=== PATIENT | female | born 1935 | race Two or more races ===

== ENCOUNTER 2016-10-02 06:42 | Day surgery (SDC) | payer MEDICARE, BC ==
--- NOTE | 2016-10-01 09:42 | Pre-Procedure Note/Attestation ---
Pre-Procedure Note/Attestation Complete Prior to Procedure Planned Procedure: right Procedure Narrative: Rt shoulder scope, SAD, mini gaurav, RTC repair Indications for Procedure Pre-Operative Diagnosis: Rt shoulder RTC tear Attestation I attest that I discussed the nature of the procedure; its benefits; risks and complications; and alternatives (and the risks and benefits of such alternatives ), prior to the procedure, with the patient (or the patient's legal corporate sales representative). I attest that, if there was a reasonable possibility of needing a blood transfusion, the patient (or the patient's legal corporate sales representative) was given the [facility] standardized written summary, pursuant to the Vini Tony Blood Safety Act ([place] Health and Safety Code # 1645, as amended). I attest that I re-evaluated the patient just prior to the surgery and that there has been no change in the patient's H&P, except as documented below: NONE PAULINA CAMACHO Oct 01, 2016 09:42
[2016-10-02] VITALS (17 sets, daily range): BP systolic 85–146; BP diastolic 48–89
[~2016-10-02] VITALS: Ht 149.9 cm; Wt 46.7 kg
[~2016-10-02 06:42] MED LIST: CITRACAL + D E1 EACH PO; MULTIVITAMINS1 EAC2 ORAL; PROZAC40 MG ORAL; SYNTHROID75 MCG ORAL; ZOLPIDEM TARTRAT5 MG ORAL; ceFAZolin 1gm in D5W 55ml IVP ONE; celeBREX 200mg Cap **SURGERY PATIENTS ONLY ORAL ONE; oxyCONTIN 20mg tab ORAL ONE
[2016-10-02] MEDS ORDERED: Ropivacaine 2mg/ml Amp INJ ONE (07:08)
[2016-10-02] MEDS ORDERED: Ropivacaine 5mg/ml Vial 20ml INJ ONE (07:26)
[2016-10-02] MEDS ORDERED: Bupivacaine w/Epi 0.5% 30ml Vial INJ ONE (07:26)
[2016-10-02] MEDS ORDERED: Clindamycin 0 ML ONE (07:32)
[2016-10-02] MEDS ORDERED: Propofol 10mg/ml 20ml IV ONE (08:30)
[2016-10-02] MEDS ORDERED: Glycopyrrolate 0.2mg/ml 1ml Vial ONE (08:30)
[2016-10-02] MEDS ORDERED: NS Irrig 2000ml IRRIG ONE (08:30)
[2016-10-02] MEDS ORDERED: NS Irrig 4000ml IRRIG ONE ×2 (08:30→09:06)
[2016-10-02] MEDS ORDERED: Midazolam 2mg/2ml Inj ONE (08:30)
[2016-10-02] MEDS ORDERED: Zemuron 50mg/5ml Inj IV ONE (08:30)
[2016-10-02] MEDS ORDERED: fentaNYL 100 mcg/2 mL IV ONE (08:30)
[2016-10-02] MEDS ORDERED: Neostigmine 1mg/ml 10ml Inj ONE (08:30)
[2016-10-02] MEDS ORDERED: LR 1000ml ONE (08:30)
[2016-10-02] MEDS ORDERED: LR 1000ml 1,000 ML IVLG SCH (09:40)
--- NOTE | 2016-10-02 09:40 | Anethesia Preoperative Eval ---
Anesthesia Pre-op PMH/ROS General Date of Evaluation: Oct 02, 2016 Time of Evaluation: 08:10 Anesthesiologist: Jammie ASA Score: ASA 2 Mallampati Score Class I : Soft palate, uvula, fauces, pillars visible Class II: Soft palate, uvula, fauces visible Class III: Soft palate, base of uvula visible Class IV: Only hard plate visible Mallampati Classification: Class II Surgeon: Lauren Diagnosis: R shoulder pain Surgical Procedure: R shoulder scope Anesthesia History: none Family History: no anesthesia problems Allergies: Coded Allergies: PENICILLINS (Verified Allergy, Mild, 10/01/16) skin rash Medications: see eMAR Past Medical History Cardiovascular: Denies: CAD, HTN, TN, arrhythmia, other, valve dz Pulmonary: Denies: COPD, ANNETTE, asthma, other Gastrointestinal/Genitourinary: Reports: GERD, Denies: CRI, ESRD, other Neurologic/Psychiatric: Denies: CVA, TIA, dementia, depression/anxiety, other Endocrine: Reports: hypothyroidism, Denies: DM, other, steroids HEENT: Denies: [place] (L), [place] (R), cataract (L), cataract (R), glaucoma, other Hematology/Immune: Reports: anemia - mild, Denies: DVT, bleeding disorder, other Musculoskeletal/Integumentary: Reports: DJD PMH Narrative: as above PSxH Narrative: L shoulder scope, small bowel resection Anesthesia Pre-op Phys. Exam Physician Exam Last Vital Signs Date Time Temp Pulse Resp B/P Pulse Ox O2 Delivery O2 Flow Rate FiO2 10/02/16 07:42 97.9 61 18 108/57 95 Room Air Constitutional: NAD Neurologic: CN 2-12 intact Cardiovascular: RRR, no M/R/G Respiratory: CTA Gastrointestinal: S/NT/ND Airway Exam Mallampati Score: Class II MO: limited Neck: stiff ROM: limited Teeth: missing Dentures: no lower, no upper Anesthesia Pre-op A/P Labs see chart Studies Pre-op Studies: EKG - NSR Risk Assessment & Plan Assessment: ASA 2 Plan: GA with ETT R brachial plexus block for p/op pain control Status Change Before Surgery: No Pre-Antibiotics Drug: Ancef 1gr. Given Within 1 Hr of Incision: Yes Time Given: 08:46 COOPER BLACK M.D. Oct 02, 2016 09:40
[2016-10-02] MEDS ORDERED: DiphenhydrAMINE 50mg/ml Inj IVP PRN (09:45)
[2016-10-02] MEDS ORDERED: Hydromorphone 0.5mg/0.5ml inj IVP PRN (09:45)
[2016-10-02] MEDS ORDERED: Ketorolac 30mg Inj IV PRN (09:45)
[2016-10-02] MEDS ORDERED: EPINEPHrine 1mg/1ml Amp ONE (10:02)
--- NOTE | 2016-10-02 10:40 | Brief Operative Note ---
Immediate Post Operative Note Operative Note Chief Complaint: rt shoulder pain Pre-op Diagnosis: Rt shoulder rtc tear Procedure: Rt shoulder scope, SAD, mini gaurav, Biceps tenotomy, subscap repair, RTC repair Post-op Diagnosis: same as pre-op Findings: consistent w/pre-op dx studies Surgeon: md Lauren Cytopathology Technologist: juventino Ortega Anesthesiologist: md Jammie Anesthesia: general, regional Specimen: none Complications: none Condition: stable Estimated Blood Loss: minimal Drains: none Implant(s) used?: Yes - Biomet 3 2.9 double loaded anchors YARELY ORTEGA Oct 02, 2016 10:40
--- NOTE | 2016-10-02 11:01 | Immediate Post-Op Evaluation ---
Immediate Post-Op Evalulation Immediate Post-Op Evalulation Procedure: R shoulder arthroscopy RC repair Date of Evaluation: Oct 02, 2016 Time of Evaluation: 11:00 IV Fluids: 800 Blood Products: none Estimated Blood Loss: 50 Urinary Output: none Blood Pressure Systolic: 145 Blood Pressure Diastolic: 76 Pulse Rate: 68 Respiratory Rate: 20 O2 Sat by Pulse Oximetry: 99 Temperature (Fahrenheit): 97.6 Pain Score (1-10): 2 Nausea: No Vomiting: No Complications none Patient Status: awake, patent, extubated, none Hydration Status: adequate COOPER BLACK M.D. Oct 02, 2016 11:01
[2016-10-02] MEDS ORDERED: D5 1/2NS 1,000 ML IV SCH (14:01)
[2016-10-02] MEDS ORDERED: Norco 5mg/325mg tab ORAL PRN (14:01)
[2016-10-02] MEDS ORDERED: Tylenol #3 tab (300mg/30mg) ORAL PRN (14:01)
[2016-10-02] MEDS ORDERED: HYDROmorphone 1mg/ml Carpuject SUBQ PRN (14:01)
--- NOTE | 2016-10-02 14:34 | 48 Hour Post Anesthesia Eval ---
Post Anesthesia Evaluation Procedure: R shoulder arthroscopy RC repair Date of Evaluation: Oct 02, 2016 Time of Evaluation: 14:33 Blood Pressure Systolic: 136 0: 58 Pulse Rate: 72 Respiratory Rate: 20 Temperature (Fahrenheit): 97.6 O2 Sat by Pulse Oximetry: 98 Airway: patent Nausea: No Vomiting: No Pain Intensity: 2 Hydration Status: adequate Cardiopulmonary Status: stable Mental Status/LOC: patient returned to baseline Follow-up Care/Observations: n/a Post-Anesthesia Complications: none Follow-up care needed: ready to discharge COOPER BLACK M.D. Oct 02, 2016 14:34
--- NOTE | 2016-10-02 17:45 | Operative Note - Dictated ---
DATE OF OPERATION: 10/02/2016 PREOPERATIVE DIAGNOSES: Right shoulder full-thickness rotator cuff tear with impingement. POSTOPERATIVE DIAGNOSES: 1. Right shoulder 2 cm rotator cuff tear without significant retraction. 2. Right shoulder leading edge 50% partial thickness tear of the subscapularis. 3. Right shoulder severe biceps tendinopathy. PROCEDURES: 1. Right shoulder arthroscopy and extensive intra-articular shaving. 2. Right shoulder tenotomy of the biceps tendon. 3. Right shoulder subacromial bursoscopy, bursectomy, and subacromial decompression. 4. Right shoulder arthroscopic subscapularis repair using single Biomet 2.9 mm anchor. 5. Right shoulder arthroscopic rotator cuff repair using 2.9 mm juggernaut anchors. 6. Right shoulder mini-Gaurav procedure (resection inferior 30% of the distended clavicle for coplaning). SURGEON: Randy Aguilar M.D. BAND SAW OPERATOR: Renetta Ortega PA-C. ANESTHESIOLOGIST: Link Agudelo M.D. ANESTHESIA: LMA anesthesia. EBL: Minimal. COMPLICATIONS: None. SURGICAL INDICATION: Patient is a 81-year-old female who sustained the above injury to her shoulder. The patient was treated non-operative initially, but this did not alleviate the patients symptoms. Therefore, after discussing all non-surgical and surgical options, and discussing all foreseeable risk and benefits of surgery, the patient opted for surgical treatment as described above. PATIENT POSITIONING: Patient was brought to the operating room table and was placed on the operating room table. All pressure points were well padded. General anesthesia was induced and patient was then placed in the lateral decubitus position. All pressure points were well padded again and an axillary roll was placed. Patient shoulder was then prepped and draped in the usual sterile fashion. Time out was performed and the appropriate preoperative antibiotic was given by the anesthesiologist. EXAMINATION OF SHOULDER UNDER ANESTHESIA: The shoulder was examined under anesthesia with all muscles well relaxed. The shoulder was forward flexed, abducted and was placed through full range of external and internal rotation. The anterior, posterior, and inferior stability of the shoulder was checked. The exam revealed no evidence of adhesive capsulitis and no evidence of instability. PORTAL PLACEMENT: The posterior portal was established 2cm inferior and 1cm medial to the edge of the posterior acromion. 1 cm skin incision was made using an eleven blade and using the blunt obturator, the cannula was gently placed through the capsule. The midglenoid portal was established just lateral to the coracoid process under direct visualization. Direction of the cannula was first established using a spinal needle, and subsequently, the cannula was placed through the capsule with a blunt obturator. The anterior superior cannula was established under direct visualization off the anterior lateral edge of the acromion and just anterior to the biceps tendon through the rotator interval. The directional of cannula was first established using a spinal needle, and subsequently, the cannula was placed through the capsule with a blunt obturator. DIAGNOSTIC ARTHROSCOPY: The biceps tendon was probed and pulled through the joint for visualization. The biceps tendon was severely degenerated and it was severely diseased and subluxed medially. The biceps anchor was palpated with a probe and was visualized. It appeared well attached and there was no evidence of SLAP tear. The posterior labrum and axillary recess was visualized. This was normal and there was no evidence of loose cartilage or fragments in this area. The glenoid articular surface was visualized and it appeared normal. The articular surface of the rotator cuff was visualized and probed next. There is a full-thickness rotator cuff measuring 2 cm. The Humeral head articular surface was then visualized. There was no evidence of articular cartilage damage. Next the anterior labrum, middle gleno-humeral ligament, subscapularis tendon, and the anterior inferior gleno-humeral ligament were evaluated. There was evidence of a leading edge subscap measuring 50% of the subscap. At this point, the scope was moved to the midglenoid portal and the posterior structures including the posterior labrum, posterior capsule and posterior cuff were visualized. These structures were completely normal. The subscapularis recess was devoid of any loose bodies and the anterior capsule was well attached to the humeral neck. The subscapularis recess was devoid of any loose bodies and the anterior capsule was well attached to the humeral neck.The middle and anterior inferior glenohumeral ligament was visualized. These structures were completely normal. OPERATIVE DEBRIDEMENTS AND REPAIR: Care was given to all partial thickness tears and frayed structures in the shoulder joint. The frayed rotator cuff and labrum was debrided using a shaver initially through the anterior portal and subsequently through the posterior portal to complete the debridement. This allowed for smooth debridement of all affected structures and all loose fragments were removed. At this point, care given to the biceps tendon. Pursuant to preoperative discussion with the patient prior to the procedure, the biceps tenotomy was performed without any complication. This released the biceps tendon. The patient understood prior to surgery that there may be bicipital deformity, although she should have some pain relief and she was accepting of this. DIAGNOSTIC BURSASCOPY AND SUBACROMIAL DECOMPRESSION: The subacromion bursa was entered from the posterior portal. The anterior portal was established under the CA ligament using a switching stick. Subacromial arthroscopy was initiated. There was extensive bursitis and thickened and inflamed bursa tissue present. The CA ligament appeared to be scuffed and frayed. The shaver was placed through the anterior cannula and debridement of the hypertrophic bursa tissue was accomplished. Once visualization was adequate, a lateral portal was established using a blunt trochar in the mid portion of the acromion bone in the anterior-posterior direction and approximately 2 cm lateral to the lateral edge of the acromion. Using combination of shaver and electrocautery the CA ligament was released from the undersurface of the acromion and a complete bursectomy was accomplished. At this point, a subacromial decompression was performed using a laura initially taking off 5-8 mm of the anterolateral edge of the acromion from the lateral portal and viewing from the posterior portal. Then the lateral border of the undersurface of the acromion was decompressed to the same dept as the anterolateral edge. A posterior trough was then created in the acromion in line with the posterior edge of the clavicle. At this point, the scope was placed in the lateral portal and the subacromial decompression was performed from the posterior portal decompressing the undersurface of the acromion to dept of 5-8 mm. The decompression was performed anterior to the previously marked trough all the way medially to the level of the AC joint. At all times, care was given not to take off too much bone in order to avoid risk of fracture of the acromion. An excellent subacromial decompression was performed in this fashion. At this point, the bursal side of the rotator cuff was examined. All the bursa over the rotator cuff was removed and the rotator cuff was examined with a probe. The arm was placed into external rotation, neutral, and then internal rotation and there was evidence of full-thickness rotator cuff tear measuring 2 cm. The scope was then placed in the posterior portal and the subacromial decompression was rechecked to assure there is no area of bone spur that would be still impinging onto the rotator cuff. EVALUATION OF DISTAL CLAVICLE AND DISTAL CLAVICLE RESECTION: Care was given to the distal end of the clavicle. Using electrocautery and coral, the distal end of the bursa and soft tissue around the distal end of the clavicle was debrided and cleaned. Care was given not to inflict excessive trauma to the ligaments of the AC joint. The distal end of the clavicle appeared to have an inferior osteophyte extending down well bellow the level of the acromion at the level of the AC joint. This appeared to be impinging onto the supraspinatous muscle belly and the musculotendenous junction of the rotator cuff. A mini-gaurav procedure was performed by using a laura to resect the inferior 30% of the distal end of the clavicle. This decompression allowed space for the inferior structures to slide without impingement. This co-plained the inferior edge of the distal clavicle with the inferior edge of the acromion. The scope was placed in the lateral portal and the rotator cuff was visualized. The rotator cuff revealed a crescent-shaped non-retracted 2 cm tear. The rotator cuff foot print adjacent to the articular cartilage of the humeral head was identified. This area was debrided initially using coral and subsequently using laura to provide adequate bleeding bony surface to accept the rotator cuff tendon. Attention was given to repair the rotator cuff with as little tension as possible. At this point, an arthroscopic punch was used to create holes for suture anchor placement at the medial edge of the foot print through separate stab wound incisions and an arthroscopic tap was used to prepare the holes. Two Biomet 2.9 mm juggernaut anchors. Double loaded with two #2 non-absorbable strong sutures were placed in previously prepared holes. Using standard arthroscopic suture passing instruments, the sutures were passed through the edge of rotator cuff with minimal trauma to the cuff tissue. Care was given to obtain large enough bites of the rotator cuff for the sutures to hold well. Once the sutures were passed through the cuff, the repair was secured onto the rotator cuff foot print using SMC sliding knots followed by 3 alternating-post half hitches. This allowed tension free repair of the rotator cuff with excellent stability and water tight closure. The cuff repair security was assured by palpating the repair with a probe. CONDITION AT DISCHARGE FROM OPERATING ROOM: The skin was re-approximated and sterile dressing and sling were applied. All lap counts and instrument counts were correct. Patient tolerated the procedure well without complications and was taken to the recovery room in stable conditions. Randy Aguilar M.D. DR: ARYA JOB#: [id number] CC:
== END 2016-10-02 15:50 | disposition home or self-care (01) ==
LOC: SUR 06:42
DX: M75.101 Unspecified rotator cuff tear or rupture of right shoulder, not specified as traumatic (principal); M75.41 Impingement syndrome of right shoulder; M75.21 Bicipital tendinitis, right shoulder; S46.811A Strain of other muscles, fascia and tendons at shoulder and upper arm level, right arm, initial encounter; X58.XXXA Exposure to other specified factors, initial encounter; Y92.89 Other specified places as the place of occurrence of the external cause; Y99.9 Unspecified external cause status; I35.8 Other nonrheumatic aortic valve disorders; I34.0 Nonrheumatic mitral (valve) insufficiency; G20 Parkinson's disease; F32.9 Major depressive disorder, single episode, unspecified; M19.90 Unspecified osteoarthritis, unspecified site; E03.9 Hypothyroidism, unspecified; E78.00 Pure hypercholesterolemia, unspecified; L71.9 Rosacea, unspecified; H91.93 Unspecified hearing loss, bilateral; H93.11 Tinnitus, right ear; M41.9 Scoliosis, unspecified; L21.9 Seborrheic dermatitis, unspecified; K21.9 Gastro-esophageal reflux disease without esophagitis; Z90.49 Acquired absence of other specified parts of digestive tract
CPT/HCPCS: 29824; 29826; 29827; J0171; J0690; J2250; J2704; J2710; J2795; J3010; J7120; 94003; 94150; C1713; S0077